=== PATIENT | female | born 1945 | race Caucasian/White ===

== ENCOUNTER 2020-09-02 12:19 | Inpatient (IN) | payer MEDICARE, OTHER, SELFPAY ==
[2020-09-02] VITALS (59 sets, daily range): BP systolic 110–142; BP diastolic 49–71; PULSE 59–74; RESP 12–25; TEMP 36.4–36.5; O2SAT 93–97
--- NOTE | 2020-09-02 12:15 | RT.EKG_ITS ---
APPROVED REPORT Exam: Resting ECG Reason for Exam: chest pain, SOB Patient Location: E HR:70 bpm ECG Measurements Heart Rate 70 AXIS GA 185 P 68 QRSd 86 QRS 34 QT 397 T 55 QTc 430 Conclusion Sinus rhythm...normal P axis, V-rate 60- 99 Low voltage, precordial leads...precordial leads <1.0mV
--- NOTE | 2020-09-02 12:30 | DI.CT_ITS ---
Exam(s) CT CHEST PE CTA EXAM: CT CHEST PE CTA CLINICAL HISTORY: Chest pain, SOB. TECHNIQUE: Imaging Protocol: Axial CT angiography was performed with multi-slice acquisition and mu lti-planar and/or 3D reconstructions. CONTRAST MATERIAL: Intravenous: Omnipaque 350 Contrast volume:structured data in ml COMPARISON: No exams were available for comparison FINDINGS: CT angiography of the chest was performed with intravenous infusion of 63 cc of Omnipaque 350. The lungs are clear. No pleural effusion. Tracheobronchial tree appears intact. No evidence of pulmonary embolic disease. Thoracic aorta is of normal diameter, no thoracic aortic an eurysm or dissection, major branch vessels appear intact. No mediastinal or hilar adenopathy. Images obtained through the upper abdomen show unremarkable appearance of the visualized portions of the liver, spleen, pancreas, adrenals, and kidneys. Note is made of cholelithiasis. IMPRESSION: Negative CT angiogram of the chest. No evidence of pulmonary embolic disease. RADIATION DOSE DELIVERED: 401.12mGy.cm Total DLP 401.12mGy.cm Total DLP DATA REPOSITORY: All CT scans at this facility are submitted to the National Radiology Data Registry (NRDR) Dose Index Registry (DIR) with the [employer] ([employer]). RADIATION OPTIMIZATION: All CT scans at this facility use at least one of these dose optimization te chniques: automated exposure control; mA and/or kV adjustment per patient size (includes targeted exa ms where dose is matched to clinical indication); or iterative reconstruction.
--- NOTE | 2020-09-02 12:39 | ED.GENADUL_ITS ---
Discharge Plan Disposition Condition: Stable Discharge Details Chief Complaint: Chest Pain Admit Date/Time: 09/02/20 17:54 Admit Provider: Rigo Bonner Attending Provider: Rigo Bonner Primary Care Provider: Alexandre Cook ED Provider: Ashley Jacobs Discharge Instructions Activity:: Activity as Tolerated Equipment/Supplies:: No Equipment Needed Diet:: As Tolerated Discharge Orders Discharge Orders: Discharge Order (Routine); Ordered 09/04/20 Ordered By: Dafne Correa Discharge Data Discharge Date/Time-TO BE ENTERED AT DEPARTURE: 09/02/20 18:37 Medical Decision Making <Carmen Abreu - Last Filed: 09/04/20 16:07> 35-year-old female presents the ER with chief complaint of midsternal chest pain x1 to 2 weeks associated with exertional shortness of breath and increased pain with movement and palpation. She reports increased pain with deep breathing. Also associated with some diarrhea which began approximately 1 month ago. She denies any nausea vomiting no abdominal pain. She denies any fever or chills. She reports she has been fully vaccinated for COVID-19 no sick contacts. She states that she has a past medical history of liver cirrhosis, HTN, Hyperlipidemia, depression. Cardiac work up ordered including serial troponins, CT chest Rule out PE. 1424: Spoke with radiologist regarding Chest CT, Negative for PE incidental positive gallstones. FINDINGS: CT angiography of the chest was performed with intravenous infusion of 63 cc of Omnipaque 350. The lungs are clear. No pleural effusion. Tracheobronchial tree appears intact. No evidence of pulmonary embolic disease. Thoracic aorta is of normal diameter, no thoracic aortic aneurysm or dissection, major branch vessels appear intact. No mediastinal or hilar adenopathy. Images obtained through the upper abdomen show unremarkable appearance of the visualized portions of the liver, spleen, pancreas, adrenals, and kidneys. Note is made of cholelithiasis. IMPRESSION: Negative CT angiogram of the chest. No evidence of pulmonary embolic disease. Patient has continued to be chest pain free except for during deep breathing, discussed possible admission for chest pain rule out with patient who verbalizes understanding. At this time care to be handed off to oncoming provider Ashley Jacobs pending repeat CT and probable admission. Discussed patient case in details with her she verbalized understanding. Patient hemodynamically stable at the time of this dictation <Samson Moya MD - Last Filed: 09/02/20 15:55> Patient seen, examined, and discussed with CALVIN Abreu. History concerning for coronary artery disease. EKG was reviewed and interpreted by me: Please see report. No STEMI. Plan to trend troponin. I agree with treatment plan as discussed/documented. <JOSE A Dominique - Last Filed: 09/02/20 18:22> Care transition myself from Maryse Mederos NP. Please see her initial note regarding history, presentation and exam. In brief, patient is a pleasant 75-year-old female presenting today with exertional chest pain shortness of breath that began approximately 2 weeks ago. Symptoms have progressively been worsening to the point that she is now holding onto her and walking with a cane. Patient reports that her father required a bypass at the age of 50, mother of cardiac disease. At the time I assume care, repeat troponin pending. Repeat troponin remains less than 0.05. Reevaluated patient. She remains asymptomatic. I am concerned for unstable angina and feel that admission based on patient's symptoms, progression of disease and family history is appropriate. Will consult with hospitalist. Spoke with Dr. Bonner who agrees to admission for continued chronic cardiac monitoring. HPI <Carmen Abreu - Last Filed: 09/04/20 16:07> General Mode of arrival: ambulatory . Date/Time Provider Initiated Documentation: 09/02/20 12:21 . Limitations to Documentation: no limitations . Information obtained by: patient . HPI Narrative: 35-year-old female presents the ER with chief complaint of midsternal chest pain x1 to 2 weeks associated with exertional shortness of breath and increased pain with movement and palpation. She reports increased pain with deep breathing. Also associated with some diarrhea which began approximately 1 month ago. She denies any nausea vomiting no abdominal pain. She denies any fever or chills. She reports she has been fully vaccinated for COVID-19 no sick contacts. She states that she has a past medical history of liver cirrhosis, HTN, Hyperlipidemia, depression. Related Data Home Medications Medication Instructions Recorded Confirmed cholecalciferol (vitamin D3) 1,500 unit PO DAILY 04/04/14 09/02/20 furosemide 40 mg PO DAILY tab-cap 04/04/14 09/02/20 melatonin 3 mg PO 04/04/14 multivitamin [Daily Multi-Vitamin] 1 ea PO DAILY 04/04/14 09/02/20 B Complex 1 ea PO DAILY 05/09/14 09/02/20 lactulose 10 g PO BID ml 05/09/14 09/02/20 arm brace [Wrist Brace Medium] #2 ea 07/08/14 metoprolol succinate 25 mg PO DAILY tab-cap 02/18/15 09/02/20 bupropion HCl 300 mg PO DAILY 09/02/20 09/02/20 sertraline 100 mg PO DAILY 09/02/20 09/02/20 spironolactone 25 mg PO DAILY 09/02/20 09/02/20 Allergies Allergy/AdvReac Type Severity Reaction Status Date / Time Sulfa (Sulfonamide AdvReac Intermediate NAUSEA,VOMI Unverified 09/02/20 12:50 Antibiotics) TING venlafaxine HCl AdvReac Intermediate BLURRY Unverified 09/02/20 12:50 [From Effexor] VISION,SHAKING General Stated Complaint: Chest Pain LUCIANO: 2 Review of Systems <Carmendaniela Abreu - Last Filed: 09/04/20 16:07> Narrative: Constitutional: Negative for weight loss, alert and oriented, well groomed, normal body habitus, appears comfortable. HEENT: Denies trauma, headaches, blurry vision, nasal discharge, sore throat, trouble swallowing. Chest: Denies palpitations, irregular rhythm, hypertension. Positive midsternal chest pain. Respiratory: Denies hemoptysis. Positive exertional shortness of breath GI: Denies abdominal pain, nausea, vomiting, diarrhea, constipation. : Denies dysuria, hematuria, flank pain, rectal bleeding. Neuro: Denies dizziness, blurry vision, weakness, syncope, headache or facial numbness. Hematologic: Denies easy bruising, intolerance to heat or cold, hair loss. PFSH <Carmen Ignacioton - Last Filed: 09/04/20 16:07> Surgical History section Family History Mother Essential hypertension Father Diabetes Heart disease Brother Heart disease Social History Smoking/Tobacco Use Status: Former Tobacco Use Smoking risk assessment performed?: Yes Alcohol Intake: former Substance use type: does not use Do you feel safe at home: Yes Do you feel safe in your relationship?: Yes Exam <Carmen Abreu [facility] Filed: 09/04/20 16:07> Narrative Exam Narrative: Constitutional: Alert and oriented x3. Appears stated age. Normal body habitus. Head: Normocephalic, no trauma. Eyes: Pupils PERRLA, Red reflex noted, EOM's intact. Eyelids symmetrical without lesions, discharge, or swelling. ENT: Bilateral TM's WNL, External ear normal to inspection, no mastoid TTP, swelling, or erythema, Nasal turbinates WNL, no nasal discharge. Normal dentition, Posterior pharynx WNL, no exudate. Chest: RRR, Normal S1, S2, distal pulses intact. Resp: Lungs clear to auscultation bilaterally, no wheezes, rales, or rhonchi. Abdomen: Soft, nontender to palpation all 4 quadrants. Musculoskeletal: Normal gait, 5/5 strength to all four extremities. No pitting edema to bilateral lower extremity. Skin: No suspicious rashes or lesions. Capillary refill less than 2 sec. Neurologic: Cranial nerves II-XII intact. Alert and oriented x 3. DTR's intact. Hematologic/Lymphatic: No ecchymosis, no lymphadenopathy. Course <Carmen Abreu - [facility] Filed: 09/04/20 16:07> Vital Signs Vital signs: Vital Signs Temperature 36.5 C 09/02/20 12:30 Pulse 74 09/02/20 12:30 Respiratory Rate 25 H 09/02/20 12:30 Blood Pressure 142/62 H 09/02/20 12:30 Pulse Oximetry 96 09/02/20 12:30 Temperature 36.5 C 09/02/20 12:30 Temperature Source Skin 09/02/20 12:30 Pulse 74 09/02/20 12:30 Respiratory Rate 25 H 09/02/20 12:30 Respiratory Effort Non-Labored 09/02/20 12:30 Blood Pressure 142/62 H 09/02/20 12:30 Blood Pressure Position Supine 09/02/20 12:30 Pulse Oximetry 96 09/02/20 12:30 Oxygen Delivery Method Room Air 09/02/20 12:30 Oxygen Flow Rate 0 09/02/20 12:30 Pain Level 5 09/02/20 12:30 Sign Out <Cramen Abreu - Last Filed: 09/04/20 16:07> Sign Out Data: Sign Out Comment: Chest Pain, Pending second Troponin, Possible admission for cardiac rule out Last updated by Carmen Abreu at 09/02/20 16:09
[2020-09-02 13:04] LABS: Abs Immature Grans 0.02 10^3/uL (0.0-0.06); Absolute Basophil Count 0.03 10^3/uL (0.0-0.2); Absolute Eosinophil Count 0.06 10^3/uL (0.0-0.7); Absolute Lymphocyte Count 1.43 10^3/uL (1.2-3.4); Absolute Monocyte Count 0.47 10^3/uL (0.1-0.8); Absolute Neutrophil Count 3.42 10^3/uL (1.2-6.7); Basophils % 0.6; Eosinophils % 1.1; HCT 39.6 % (36.0-46.0); HGB 13.3 g/dL (11.2-15.7); Immature Grans % 0.4; Lymphocytes % 26.3; MCHC 33.6 % (32.0-36.0); MCV 86.3 fL (80-95); MPV 10.3 fL (8.0-11.0); Monocytes % 8.7; Neutrophils % 62.9; Nucleated RBC 0 %; Platelet Count 203 10^3/uL (130-400); RBC 4.59 10^6/uL (3.93-5.22); RDW 11.9 % (11.7-14.6); RDW-SD 37.2 fL; WBC 5.43 10^3/uL (4.4-10.8)
[2020-09-02 13:29] LABS: ALT 27 U/L (14-59); AST 16 U/L (15-37); Albumin 3.8 g/dL (3.4-5.0); Alkaline Phosphatase 87 U/L (46-116); Anion Gap 7.7 mmol/L (3-11); BUN 24 mg/dL (7-18); Bilirubin, Total 0.4 mg/dL (0.2-1.0); CO2 28.3 mmol/L (21.0-32.0); CREATININE 1.3 mg/dL (0.55-1.02); Calcium 9.1 mg/dL (8.5-10.1); Chloride 107 mmol/L (98-107); Estimated GFR 40.04 (mL/min/1.73m2); Glucose 96 mg/dL (74-106); Magnesium 2.1 mg/dL (1.8-2.4); NT-proBNP 169 pg/mL (<300); Potassium 4.2 mmol/L (3.5-5.1); Sodium 143 mmol/L (136-145); Total Protein 6.8 g/dL (6.4-8.2)
[2020-09-02 13:37] LABS: Troponin I < 0.05 ng/mL (<0.06)
[2020-09-02] MEDS: Omnipaque 350 MG/ML 100 ML BTL IJ (14:14)
[2020-09-02] MEDS: Normal Saline - Diluent 50 ML VIAL IV (14:15)
--- NOTE | 2020-09-02 15:45 | RT.EKG_ITS ---
APPROVED REPORT Exam: Resting ECG Reason for Exam: chest pain Patient Location: E HR:61 bpm ECG Measurements Heart Rate 61 AXIS DC 200 P 79 QRSd 83 QRS 43 QT 429 T 38 QTc 432 Conclusion Sinus rhythm...normal P axis, V-rate 60- 99
[2020-09-02 16:33] LABS: Troponin I < 0.05 ng/mL (<0.06)
[2020-09-02 18:08] LABS: Source Nasal/Nares
[2020-09-02] MEDS: Normal Saline Flush 10 ML SYR IVP (19:48)
--- NOTE | 2020-09-02 20:35 | HPE_ITS ---
Date of service: 09/02/20 Time of Service: 20:35 Assessment and Plan Assessment and plan (1) Chest pain: Status: Acute Assessment and plan: Risk factors for CAD; FH (Father had bypass surgery at age 50 and mother of CAD, HTN, HLD. Serial troponin levels. Negative x 2 with 3rd pending. No concerning EKG findings. CTA w/o pulmonary embolism or evidence of pneumonia. Cannot perform stress testing tomorrow; unavailable on Wednesdays. Echocardiogram ordered. Telemetry. 81 mg ASA daily. Lipid panel in the AM Qualifiers: Chest pain type: unspecified Qualified Code(s): R07.9 - Chest pain, unspecified (2) Essential hypertension: Status: Acute Assessment and plan: Cont metoprolol. Also on diuretics; lasix and spironolactone. Monitor. (3) Hyperlipidemia: Status: Acute Assessment and plan: Lipid panel in the AM Currently not on a statin. (4) Cirrhosis: Status: Acute Assessment and plan: Pt states the etiology is not know. Is a previous user of Etoh. States it is not related to a fatty liver/GRIMM or autoimmune. Cont lactulose, spironolactone, BB. Monitor daily wt. History of Present Illness History of Present Illness Chief Complaint: Chest Pain Narrative: This is a 75 yo female with a PMH of cirrhosis, HLD, HTN, depression. She presented with midsternal chest pain for appx 1-2 weeks and worsening. She has recently started holding on to her or using her umbrella as a cane when walking. She notes the presence of the pain with movement, deep breaths and palpation of the chest. She has developed shortness of air with exertion. No radiation of the pain. + diarrhea w/o N/V/abd pain. No F/C. She is fully vacinnated for Covid- 19. In the ED troponin neg x 2. CTA chest negative for pulmonary embolism or other acute findings. WBC count normal. Lytes normal. Creatinine 1.3. Liver enzymes and bilirubin normal. Review of Systems All systems reviewed & are unremarkable except as noted in HPI and below PFSH Surgical History section Family History Mother Essential hypertension Father Diabetes Heart disease Brother Heart disease Social History Smoking/Tobacco Use Status: Former Tobacco Use Smoking risk assessment performed?: Yes Alcohol Intake: former Substance use type: does not use Do you feel safe at home: Yes Do you feel safe in your relationship?: Yes Meds Allergies and Home Medications Allergies Allergy/AdvReac Type Severity Reaction Status Date / Time Sulfa (Sulfonamide AdvReac Intermediate NAUSEA,VOMI Unverified 09/02/20 12:50 Antibiotics) TING venlafaxine HCl AdvReac Intermediate BLURRY Unverified 09/02/20 12:50 [From Effexor] VISION,SHAKING Home Medications Medication Instructions Recorded Confirmed Type cholecalciferol (vitamin D3) 1,500 unit PO DAILY 04/04/14 09/02/20 History furosemide 40 mg PO DAILY tab-cap 04/04/14 09/02/20 History melatonin 3 mg PO 04/04/14 History multivitamin [Multi-Vitamin Daily] 1 ea PO DAILY 04/04/14 09/02/20 History lactulose 10 g PO BID ml 05/09/14 09/02/20 History vitamin B complex [B Complex] 1 ea PO DAILY 05/09/14 09/02/20 History arm brace [Wrist Brace] #2 ea 07/08/14 History metoprolol succinate 25 mg PO DAILY tab-cap 02/18/15 09/02/20 History bupropion HCl 300 mg PO DAILY 09/02/20 09/02/20 History sertraline 100 mg PO DAILY 09/02/20 09/02/20 History spironolactone 25 mg PO DAILY 09/02/20 09/02/20 History Exam Const General: cooperative and no acute distress Nutritional Appearance: average body habitus Orientation: alert and oriented x3 Neck Neck: full ROM and no JVD Chest Chest: no tenderness Resp Effort & Inspection: normal respiratory effort Auscultation: clear to auscultation bilaterally Cardio Rate: regular rate Rhythm: regular rhythm Heart Sounds: S1 normal and S2 normal GI Palpation: soft and nontender Skin General skin exam: no rashes or lesions noted Extrem General: no pedal edema and no calf tenderness Psych Appearance: grossly normal Mental Status: mental status grossly normal Speech and Movement: speech and movement normal Affect: normal affect Results Labs Result diagrams: 09/02/20 12:52 09/02/20 12:52 Labs: Laboratory Results - last 24 hr 09/02/20 09/02/20 09/02/20 12:38 12:52 12:52 WBC 5.43 RBC 4.59 Hgb 13.3 Hct 39.6 MCV 86.3 MCH 29.0 MCHC 33.6 RDW 11.9 Plt Count 203 MPV 10.3 Immature Gran % 0.4 Neutrophils % 62.9 Lymphocytes % 26.3 Monocytes % 8.7 Eosinophils % 1.1 Basophils % 0.6 Nucleated RBC % 0 Absolute Neutrophils 3.42 Absolute Lymphocytes 1.43 Absolute Monocytes 0.47 Absolute Eosinophils 0.06 Absolute Basophils 0.03 Sodium 143 Potassium 4.2 Chloride 107 Carbon Dioxide 28.3 Anion Gap 7.7 BUN 24 H Creatinine 1.3 H Estimated GFR/1.73 m2 40.04 Glucose 96 Calcium 9.1 Magnesium 2.1 Total Bilirubin 0.4 AST 16 ALT 27 Alkaline Phosphatase 87 Troponin I < 0.05 NT-Pro-B Natriuret Pep Cancelled 169 Total Protein 6.8 Albumin 3.8 COVID-19 Source 09/02/20 09/02/20 15:58 18:00 WBC RBC Hgb Hct MCV MCH MCHC RDW Plt Count MPV Immature Gran % Neutrophils % Lymphocytes % Monocytes % Eosinophils % Basophils % Nucleated RBC % Absolute Neutrophils Absolute Lymphocytes Absolute Monocytes Absolute Eosinophils Absolute Basophils Sodium Potassium Chloride Carbon Dioxide Anion Gap BUN Creatinine Estimated GFR/1.73 m2 Glucose Calcium Magnesium Total Bilirubin AST ALT Alkaline Phosphatase Troponin I < 0.05 NT-Pro-B Natriuret Pep Total Protein Albumin COVID-19 Source Nasal/nares Last Vital Signs Temp 36.5 C 09/02/20 18:44 Pulse 64 09/02/20 19:42 Resp 20 09/02/20 18:44 BP 136/63 09/02/20 18:44 Pulse Ox 95 09/02/20 18:44 COVID-19 Screening Have you, or household traveled for leisure in last 14 days?: No Had IN PERSON contact w/suspected or confirmed C-19 person: No
[2020-09-02 20:36] LABS: COVID-19 PCR Negative (Negative)
[2020-09-02 22:00] LABS: Troponin I < 0.05 ng/mL (<0.06)
[2020-09-03] VITALS (9 sets, daily range): BP systolic 110–148; BP diastolic 58–72; PULSE 56–71; RESP 16–19; TEMP 36.1–37; O2SAT 94–97
--- NOTE | 2020-09-03 | DI.US_ITS ---
Exam(s) US ABDOMEN LIMITED EXAM: US ABDOMEN LIMITED CLINICAL HISTORY: evaluate gall bladder TECHNIQUE: Ultrasound abdomen performed using standard protocol. COMPARISON: CT scan 09/02/2020 was reviewed. FINDINGS: There is no ascites evident. LIVER: There are no hepatic lesions evident nor dilatation of intrahepatic ducts. GALLBLADDER/BILIARY: Per mobile gallstones noted. No gallbladder wall edema nor pericholecystic flui d. The common hepatic duct isnot dilated, measuring 3-4mm at the level of brisa hepatis. PANCREAS: There is no evidence of pancreatic mass nor dilatation of the pancreatic duct. RIGHT KIDNEY:No evidence of solid mass, calculus, nor hydronephrosis. No cortical cysts evident. ABDOMINAL AORTA AND IVC: Visualized portions exhibit normal caliber. IMPRESSION: 1. Cholelithiasis. There are gallstones noted. Gallbladder wall does not appear edematous. No dil atation of the biliary tree. 2. No other significant ultrasound findings in the right upper quadrant. 3. There is no ascites. DATA REPOSITORY:
[2020-09-03 07:51] LABS: Anion Gap 7.4 mmol/L (3-11); BUN 22 mg/dL (7-18); CO2 29.6 mmol/L (21.0-32.0); CREATININE 1.2 mg/dL (0.55-1.02); Calcium 8.8 mg/dL (8.5-10.1); Calculated LDL 144 mg/dL (<100); Chloride 107 mmol/L (98-107); Cholesterol 225 mg/dL (<200); Estimated GFR 43.91 (mL/min/1.73m2); Glucose 93 mg/dL (74-106); HDL Cholesterol 61 mg/dL (40-60); Potassium 3.8 mmol/L (3.5-5.1); Sodium 144 mmol/L (136-145); Triglyceride 103 mg/dL (<150)
[2020-09-03] MEDS: Lactulose 20 GM/30 ML CUP 10 GM PO (09:39)
[2020-09-03] MEDS: Aspirin 81 MG CHEW PO (09:40)
[2020-09-03] MEDS: Cholecalciferol (Vitamin D3) 1,000 UNIT TAB 1500 UNITS PO (09:40)
[2020-09-03] MEDS: buPROPion-XL 150 MG TABCR 300 MG PO (09:40)
[2020-09-03] MEDS: Sertraline 50 MG TAB 100 MG PO (09:40)
[2020-09-03] MEDS: Vitamins B Comp w/C TAB 1 TAB PO (09:40)
[2020-09-03] MEDS: Furosemide 20 MG TAB 40 MG PO (09:40)
[2020-09-03] MEDS: Multivitamin TAB 1 TAB PO (09:40)
[2020-09-03] MEDS: Metoprolol CR 25 MG TABCR PO (09:40)
[2020-09-03] MEDS: Normal Saline Flush 10 ML SYR IVP (09:40)
[2020-09-03] MEDS: Spironolactone 25 MG TAB PO (09:40)
--- NOTE | 2020-09-03 15:58 | CHAPLAIN ---
Zuleika was up in her chair watching tv when I visited. She was pleasant and engaged in conversation. She said she is waiting to hear if she'll be discharged today or not. She wasn't interested in further conversation.
--- NOTE | 2020-09-03 16:19 | W.PM.PROGNOT ---
Date of Service Date of service: 09/03/20 Time of Service: 16:19 Assessment and Plan Assessment and plan (1) Chest pain: Status: Acute Assessment and plan: Risk factors for CAD; FH (Father had bypass surgery at age 50 and mother of CAD, HTN, HLD. Serial troponin levels negative No concerning EKG findings. CTA w/o pulmonary embolism or evidence of pneumonia. stress testing tomorrow, will be npo after midnight, hold am lopressor Echocardiogram EF 60% with no WMA. continue Telemetry. 81 mg ASA daily. Lipid panel Qualifiers: Chest pain type: unspecified Qualified Code(s): R07.9 - Chest pain, unspecified (2) Essential hypertension: Status: Acute Assessment and plan: Cont metoprolol. Also on diuretics; lasix and spironolactone. Monitor. (3) Hyperlipidemia: Status: Acute Assessment and plan: Lipid panel Currently not on a statin. (4) Cirrhosis: Status: Acute Assessment and plan: Pt states the etiology is not know. Is a previous user of Etoh. States it is not related to a fatty liver/GRIMM or autoimmune. Cont lactulose, spironolactone, BB. Monitor daily wt. (5) Discharge planning issues: Status: Acute Assessment and plan: plan on discharge tomorrow if stress test negative discussed with Dr Garland Subjective Subjective Patient reports: no new complaints, feels better, voiding w/o difficulty and afebrile Exam Const General: cooperative and no acute distress Nutritional Appearance: average body habitus Orientation: alert and oriented x3 Neck Neck: full ROM and no JVD Chest Chest: no tenderness Resp Effort & Inspection: normal respiratory effort Auscultation: clear to auscultation bilaterally Cardio Rate: regular rate Rhythm: regular rhythm Heart Sounds: S1 normal and S2 normal GI Palpation: soft and nontender Skin General skin exam: no rashes or lesions noted Extrem General: no pedal edema and no calf tenderness Psych Appearance: grossly normal Mental Status: mental status grossly normal Speech and Movement: speech and movement normal Affect: normal affect Objective Last Vital Signs Temp 36.4 C L 09/03/20 15:37 Pulse 61 09/03/20 15:37 Resp 19 09/03/20 15:37 BP 115/67 09/03/20 15:37 Pulse Ox 97 09/03/20 15:37 Laboratory Results - last 24 hr 09/02/20 09/02/20 09/02/20 15:58 18:00 20:01 Sodium Potassium Chloride Carbon Dioxide Anion Gap BUN Creatinine Estimated GFR/1.73 m2 Glucose Calcium Troponin I < 0.05 Cancelled Triglycerides Total Cholesterol LDL Cholesterol, Calc HDL Cholesterol COVID-19 Source Nasal/nares SARS-CoV-2 (PCR) Negative 09/02/20 09/03/20 21:30 06:35 Sodium 144 Potassium 3.8 Chloride 107 Carbon Dioxide 29.6 Anion Gap 7.4 BUN 22 H Creatinine 1.2 H Estimated GFR/1.73 m2 43.91 Glucose 93 Calcium 8.8 Troponin I < 0.05 Triglycerides 103 Total Cholesterol 225 H LDL Cholesterol, Calc 144 H HDL Cholesterol 61 COVID-19 Source SARS-CoV-2 (PCR)
[2020-09-04 03:29] VITALS: BP 153/66; PULSE 61; RESP 16; TEMP 36.2; O2SAT 96
[2020-09-04 07:54] VITALS: PULSE 61
[2020-09-04 08:06] VITALS: BP 138/67; PULSE 61; RESP 18; TEMP 37.1; O2SAT 97
--- NOTE | 2020-09-04 09:15 | DI.NM_ITS ---
APPROVED REPORT Exam: Exercise Treadmill converted to Pharmacologic Patient Location: In-Patient Room/Bed: [address] [facility] Nurse: Anna Taylor RN Ordering Provider:WALLACE JHAVERI, Contact Number: [phone] BMI: 26.82 Baseline Rhythm: Sinus Rhythm Indications: Chest pain Medical History Medical History: Hypertension, hyperlipidemia, depression Cardiac Medications: spironolactone, furosemide, sertraline, bupropion, metoprolol succinate Allergies: Sulfa, venlafaxine hcl Cardiac Risk Factors: Hypertension, hyperlipidemia, smoker (former), family hx Previous Cardiac Procedures: None Pretest Chest Pain Characteristics: Midsternal CP /, pressure/achey Exercise History: Sedentary Physical Disabilities: None Lung Sounds: Clear to auscultation Heart Sounds: Regular Stress Test Details Test: Exercise stress converted to pharmacologic stress. Reason for pharmacologic stress test: Inability to safely monitor EKG w/ exercise. Nuclear Acquisition: Rest Tc-99m/Stress Tc-99m 1 day Rest Isotope: Tc-99m Sestamibi. Dose: 12 Date: 09/04/2020 Injection Time: 0920 Stress Isotope: Tc-99m Sestamibi. Dose: 36 Date: 09/04/2020 Injection Time: 1125 HR Resting HR Supine: 62 bpm Max Heart Rate (APMHR): 146.492102 bpm Resting HR Standin bpm Target HR (85% APMHR): 124.100861 bpm Max HR Achieved: 98 bpm % of APMHR: 67.12 Recovery HR: 75 bpm HR response to stress: Normal HR response to stress Comment: Metoprolol succinate held for 24 hrs BP Resting BP Supine: 150/88 mmHg Resting BP Standin/70 mmHg Max BP: 150/88 mmHg Recovery BP: 136/72 mmHg BP response to stress: Normal blood pressure response to stress. ECG Resting ECG: Sinus Rhythm Ectopy: None Stress ECG: Sinus Rhythm ST Change: No significant ST segment changes noted Arrhythmia: None Recovery ECG: Sinus Rhythm Recovery ST Change: No significant ST segment changes noted Recovery Arrhythmia: None Clinical Stress Symptoms: Chest pain, Dyspnea Exercise duration: 11 min02 sec Rate Pressure Product: 09130 Stress ECG Conclusion 1. This was an exercise stress test converted to a pharmacological exam. 2. The EKG portion of this exam is nondiagnostic. MPI Conclusion Ejection fraction was greater than 70% with stress. There were no wall motion abnormalities. There is a large degree of uptake outside of the heart affecting the interpretation of this study. There is no clear evidence of ischemia on the imaging portion of the exam. This likley represents a normal SPECT stress test. Radiologist Interpretation Radiologist agrees with Business Info Consultant's Interpretation. Radiologist Interpretation by: Blessing Linder MD Interpretation Date/Time: 09/05/2020 15:28:35
--- NOTE | 2020-09-04 09:53 | INITIAL_ITS ---
- If Service Date Differs Date of service: 09/04/20 Time of Service: 14:01 Care Management Initial Assess REASON FOR HOSPITALIZATION:: Unstable angina PAST MEDICAL HISTORY/PAST SURGICAL HISTORY:: section PREVIOUS FUNCTIONAL STATUS/SOCIAL/FAMILY SUPPORTS:: Zuleika resides in [place] with her , Cyrus, and their dog-Fern. She is independent with all ADLs in the community. CURRENT FUNCTIONAL STATUS:: Zuleika was sitting up in her chair, watching television. She is looking forward to returning home and shares no other concerns at this time, CM continues to follow. ADVANCE DIRECTIVES:: None on file at [facility]. Has patient been provided with info about the portal/API?: Yes Did the patient sign up for the portal?: No CODE STATUS:: Full Code INSURANCE COVERAGE / FINANCIAL ISSUES:: Medicare. [employer] CURRENT HOME/COMMUNITY SERVICES/EQUIPMENT:: No current services or equipment. PRIMARY CARE PHYSICIAN:: Alexandre Cook POTENTIAL DISCHARGE NEEDS:: Follow up appointments. PATIENT/FAMILY EDUCATION NEEDS:: Review discharge instructions, discuss Ask Me Three. ANTICIPATED BARRIERS TO DISCHARGE:: None identified. TRANSPORTATION:: Via private vehicle with her . PLAN:: Zuleika will return home when ready per MD. No additional services anticipated at this time. She will follow up with her PCP and plan of care as prescribed. She will transport via private vehicle with her .
[2020-09-04] MEDS: Regadenoson 0.4 MG/5 ML SYR IVP (11:51)
[2020-09-04] MEDS: Cholecalciferol (Vitamin D3) 1,000 UNIT TAB 1500 UNITS PO (13:58)
[2020-09-04] MEDS: Vitamins B Comp w/C TAB 1 TAB PO (13:58)
[2020-09-04] MEDS: buPROPion-XL 150 MG TABCR 300 MG PO (13:58)
[2020-09-04] MEDS: Spironolactone 25 MG TAB PO (13:58)
[2020-09-04] MEDS: Furosemide 20 MG TAB 40 MG PO (13:58)
[2020-09-04] MEDS: Multivitamin TAB 1 TAB PO (13:58)
[2020-09-04] MEDS: Sertraline 50 MG TAB 100 MG PO (13:58)
[2020-09-04 14:55] VITALS: BP 114/67; PULSE 72; RESP 18; TEMP 37.1; O2SAT 97
--- NOTE | 2020-09-04 15:53 | W.PM.DS.N ---
Date of service: 09/04/20 Time of Service: 15:53 DS: Diagnosis Discharge Diagnosis (1) Chest pain: Status: Acute (2) Essential hypertension: Status: Acute (3) Hyperlipidemia: Status: Acute (4) Cirrhosis: Status: Acute Discharge Plan Disposition Patient Disposition: HOME Condition: Stable Discharge Details Reason For Visit: UNSTABLE ANGINA Admit Date/Time: 09/02/20 17:54 Admit Provider: Rigo Bonner Attending Provider: Rigo Bonner Primary Care Provider: Alexandre Cook [facility] Hospital Course: This is a 75 year old female with a past medical history of cirrhosis, HLD, HTN, depression.? She presented with midsternal chest pain for appx 1-2 weeks and worsening. She has recently started holding on to her or using her umbrella as a cane when walking.? She notes the presence of the pain with movement, deep breaths and palpation of the chest.? She has developed shortness of air with exertion.? No radiation of the pain.? She is fully vaccinated for Covid-19.? In the ED troponin neg x 2.? CTA chest negative for pulmonary embolism or other acute findings.? WBC count normal.? Lytes normal.? Creatinine 1.3.? Liver enzymes and bilirubin normal.? she remained medically and hemodynamically stable and asymptomatic. she underwent a stress test which was unremarkable. she will be discharged to home to follow up outpatient with pcp for further outpatient testing of dyspnea with exertion with elevated PASP at 36 mmHg echo: LV chamber size, wall thickness, global and segmental systolic function are within normal limits EF 60%. Right ventricular chamber size wall thickness and systolic function are within normal limits. PASP 36 mmHg discharge discussed with Dr Garland Jasper Meds and New Rx's Prescriptions: Continued multivitamin [Daily Multi-Vitamin] 1 EACH tablet 1 ea PO DAILY RF: 0 melatonin 3 MG tablet 3 mg PO RF: 0 furosemide 20 MG tablet 40 mg PO DAILY RF: 0 cholecalciferol (vitamin D3) 1,000 UNIT tablet 1,500 unit PO DAILY RF: 0 B Complex 1 EACH tablet extended release 1 ea PO DAILY RF: 0 lactulose 10 GM/15 ML solution 10 g PO BID RF: 0 (DME) arm brace [Wrist Brace Medium] 1 EACH misc 1 ea Miscellaneous HS Qty: 2 RF: 0 metoprolol succinate 25 MG tablet extended release 24 hr 25 mg PO DAILY RF: 0 sertraline 100 mg Tablet 100 mg PO DAILY RF: 0 spironolactone 25 mg Tablet 25 mg PO DAILY RF: 0 bupropion HCl 300 mg Tablet Extended Release 24 Hr 300 mg PO DAILY RF: 0 Discharge Instructions Instructions: Dyspnea (DC) Additional Instructions: your echo showed elevated pulmonary artery pressure at 36. This will require further outpatient evaluation that can be arranged through your primary care provider. Stand Alone Forms: Nursing Discharge Form Referrals: [facility] [place] [Outside] [place]UL[place]OLOG[place],[facility] [place] [facility] [place] - Alexandre Cook [Primary Care Provider] - (Please call office for follow up appointment.) Activity:: Activity as Tolerated Equipment/Supplies:: No Equipment Needed Diet:: As Tolerated Discharge Orders Discharge Orders: Discharge Order (Routine); Ordered 09/04/20 Ordered By: Dafne Correa Other Ambulatory Orders: PFT ([facility]) (Outpt) (ONCE) Location: None Selected Ordered By: Dafne Correa DS: Summary Time Spent with Patient providing and/or coordinating discharge services: Greater than 30 minutes Status at Discharge Functional status at discharge: independent ambulation Overall status at discharge: patient is not back to baseline Mental Status: mental status grossly normal Speech and Movement: speech and movement normal Mood: congruent mood Affect: normal affect Exam Const General: cooperative and no acute distress Nutritional Appearance: average body habitus Orientation: alert and oriented x3 Neck Neck: full ROM and no JVD Chest Chest: no tenderness Resp Effort & Inspection: normal respiratory effort Auscultation: clear to auscultation bilaterally Cardio Rate: regular rate Rhythm: regular rhythm Heart Sounds: S1 normal and S2 normal GI Palpation: soft and nontender Skin General skin exam: no rashes or lesions noted Extrem General: no pedal edema and no calf tenderness Psych Appearance: grossly normal Mental Status: mental status grossly normal Speech and Movement: speech and movement normal Mood: congruent mood Affect: normal affect DS: Data Vitals/I&O Vitals and I&O: Vital Signs Temperature 37.1 C 09/04/20 14:55 Temperature Source Temporal Artery Scan 09/04/20 14:55 Pulse 72 09/04/20 14:55 Pulse Rhythm Regular 09/04/20 08:15 Pulse 66 09/02/20 18:10 Respiratory Rate 18 09/04/20 14:55 Respiratory Effort Non-Labored 09/04/20 08:15 Respiratory Depth Normal 09/04/20 08:15 Respiratory Pattern Normal 09/04/20 08:15 Blood Pressure 114/67 09/04/20 14:55 Blood Pressure Mean 78 09/02/20 18:01 Blood Pressure Position Supine 09/02/20 12:30 Pulse Oximetry 97 09/04/20 14:55 Oxygen Delivery Method Room Air 09/04/20 14:55 Oxygen Flow Rate 0 09/04/20 14:55 Pain Level 2 09/04/20 14:55 Intake & Output 09/03/20 09/04/20 09/04/20 23:59 11:59 23:59 Intake Total 480 / 720 Balance 480 / 720 Intake: Oral 480 / 720 Other: Urine Color Pale Urine Appearance Clear Clear Comment pt up independently to void per pt report Voiding Methods Toilet PFSH Surgical History section Family History Mother Essential hypertension Father Diabetes Heart disease Brother Heart disease Social History Smoking/Tobacco Use Status: Former Tobacco Use Smoking risk assessment performed?: Yes Alcohol Intake: former Substance use type: does not use Do you feel safe at home: Yes Do you feel safe in your relationship?: Yes
== END 2020-09-04 17:01 | disposition home or self-care (01) | DRG 313 ==
LOC: ER 18:13 → MS 18:39
PROVIDERS: Registered Nurse Emergency; Admitting Provider Family Medicine; Emergency Provider Physician Assistant; PCP Neuromusculoskeletal Medicine & OMM; Visit Provider Family Medicine
DX: R07.9 Chest pain, unspecified (principal); I10 Essential (primary) hypertension; E78.5 Hyperlipidemia, unspecified; Z20.822 Contact with and (suspected) exposure to COVID-19; K74.60 Unspecified cirrhosis of liver; F32.9 Major depressive disorder, single episode, unspecified; Z82.49 Family history of ischemic heart disease and other diseases of the circulatory system
CPT/HCPCS: 36415; 71275; 78452; 80048; 80053; 80061; 87635; 93005; 99285; 76705; 83735; 83880; 84484; 85025; 93010; 93017; 93306; 99223; 99233; 99239; J2785; J3490

== ENCOUNTER 2020-09-09 11:07 | Outpatient (CLI) | payer MEDICARE, OTHER, SELFPAY ==
--- OUTSIDE RECORDS SUMMARY | 2020-09-09 11:10 | XMS_ITS ---
:1945 Author Care Team Providers Name Role Phone BHARGAV BLAIR DO Primary Care Provider Unavailable JIM JOSEPH MD Orthopedic Surgeon Unavailable ASHLEY RICO MD General Surgeon Unavailable Allergies Code Code System Name Reaction Severity Status Onset Effexor Hallucinations Moderate Active ? Sulfa Dizziness Moderate Active ? (Sulfonamide Antibiotics) Medications Name Status Start Date Stop Date ? ? albuterol sulfate 2.5 mg/3 mL (0.083 %) solution for nebuliz ation Completed 05/21/2011 01/04/2012 1 Nebulized Soln: qid and prn Aldactone 50 mg tablet Completed 05/17/2012 3 1 (one) Tablet: daily Ambien 10 mg tablet Completed 01/04/2012 10/18/2012 1 (one) Tablet: At bedtime as needed amitriptyline 10 mg tablet Completed 01/25/201301/25 1 Tablet: qhs - at bedtime as needed insomnia amoxicillin 875 mg tablet Completed 05/23/20142014 1 (one) Tablet: two times daily aspirin 325 mg tablet,delayed release Completed 09/29/2012 12/21/2012 1 (one) Tab DR: daily B Complex 1 tablet Active ? Not available Take 1 tablet every day by oral route. bupropion HCl XL 300 mg 24 hr tablet, extended release Active ? Not available TAKE ONE TABLET BY MOUTH EVERY DAY calcipotriene 0.005 % scalp Completed ? 07/26 solution Celebrex 200 mg capsule Completed 08/26/2008 08/27/19 09 1 (one) Capsule: Daily cholecalciferol (vit D3) 1,000 unit-vitamin K2 (MK4) 100 mcg tab let Completed ? 08/22/2018 Take 1 tablet by oral route in the morning. ciprofloxacin 250 mg tablet Completed 06/23/2012 03/0 11/2012 1 Tablet: every 12 hours for urinary tract infec citalopram 10 mg tablet Completed 03/13/2008 03/13/20 08 1 (one) Tablet: Daily clindamycin HCl 300 mg capsule Completed 06/07/2014 0 06/17/2014 1 (one) Capsule: every eight hours Debrox 6.5 % ear drops Completed 11/14/2006 Delzicol 400 mg capsule (DR tablets inside) Completed 09/2312/21/2012 2 (two) Capsule DR: tid - three times a day diphenoxylate-atropine 2.5 mg-0.025 mg/5 mL oral liquid Complete d 01/13/2016 02/10/2016 2.5 Milliliter: q 6 hours prn diarrhea docusate sodium 100 mg capsule Completed 09/27/2013 1 1 Capsule: bid - twice daily doxycycline hyclate 20 mg tablet Active ? Not available TAKE ONE TABLET BY MOUTH TWICE A DAY Effexor XR 37.5 mg capsule,extended release Completed 09/2410/17/2006 1 (one) Cap SR 24HR: QD for 14 days enalapril maleate 10 mg tablet Completed 06/24/2009 0 06/24/2009 1 (one) Tablet: daily Estrace 0.01% (0.1 mg/gram) vaginal cream Completed 201304/30/2014 1 (one) Application(s): 2 - 3 x wk fish oil-omega 3-vit E-flax seed oil 187.5 mg-5 mg-250 mg capsul e Active ? Not available Take 1 capsule every day by oral route. Flagyl 250 mg tablet Completed 01/09/2008 01/23/2008 1 (one) Tablet: three times daily Flonase 50 mcg/actuation nasal spray,suspension Completed 08/16/2012 12/21/2012 2 (two) Opp(s): See comments Flovent HFA 110 mcg/actuation aerosol inhaler Completed 06/22/2011 2 (two) Puff(s): bid - twice daily Fluzone High-Dose Quad 2020-21 (PF) 240 mcg/0.7 mL IM syringe Ac tive ? Not available PHARMACIST ADMINISTERED IMMUNIZATION ADMINISTERED AT TIME OF DI SPENSING furosemide 20 mg tablet Active ? Not avai lable TAKE 1 TABLET BY MOUTH EVERY DAY FOR 7 DAYS OR UNTIL SWELLING S UBSIDES Guaifenesin AC 10 mg-100 mg/5 mL oral liquid Completed 02/18/2017 1 (one) teaspoon: q 6 hours prn cough hydrochlorothiazide 25 mg tablet Completed 08/31/2012 08/31/2012 1 (one) Tablet: daily hydrocodone 5 mg-acetaminophen 325 mg tablet Completed 06/26/2013 1 Tablet: two times daily, as needed ibuprofen 800 mg tablet Completed 06/18/2008 06/18/19 09 1 (one) Tablet: QID/PRN Inderal LA 60 mg capsule,extended release Completed 201212/21/2012 1 Capsule ER 24HR: bid - twice daily lactulose 10 gram/15 mL oral solution Active ? Not available TAKE 20GMS ( 2 TABLESPOONS ) BY MOUTH THREE TIMES A DAY Levaquin 750 mg tablet Completed 11/18/2005 6 1 (one) Tablet: Daily x 3 days loperamide 2 mg capsule Completed 11/25/2015 02/10/20 16 1 (one) Capsule: in the am as needed lorazepam 0.5 mg tablet Completed 09/29/2012 10/01/19 13 1 (one) Tablet: As directed Macrobid 100 mg capsule Completed 06/26/2009 07/04/19 10 1 (one) Capsule: Twice daily meclizine 12.5 mg tablet Completed 12/21/2012 013 1 Tablet: three times daily. as needed melatonin ER 3 mg tablet,extended release Completed 201307/07/2015 1 Tablet ER: at night metoprolol succinate ER 25 mg tablet,extended release 24 hr Acti ve ? Not available TAKE ONE TABLET BY MOUTH EVERY DAY metoprolol tartrate 50 mg tablet Completed 10/17/2006 10/17/2006 1 (one) Tablet: Twice daily Milk Of Magnesia Concentrated 2,400 mg/10 mL oral suspension Completed 12/21/2012 01/25/2013 30 Milliliter(s): daily as needed mirtazapine 15 mg tablet Completed 07/25/2009 010 1 (one) Tablet: daily in the evening Multi Vitamin Active ? Not available Mysoline 250 mg tablet Completed 11/13/2010 1 04/26 Tablet: twice daily nebulizer accessories misc Completed 05/21/201101/03 1 Device: as directed Nexium 40 mg capsule,delayed release Completed 03/13/2008 03/13/2008 1 (one) Cap DR: Daily nystatin 100,000 unit/mL oral suspension Completed 012 07/06/2011 1 Teaspoon(s): qid - four times a day omeprazole 20 mg capsule,delayed release Completed 014 04/16/[address]: take 04/26 hoiur before first am meal ondansetron 4 mg disintegrating tablet Active ? Not available prn Pepcid 20 mg tablet Completed 07/02/2004 11/08/2005 1 (one) Tablet: BID potassium chloride ER 10 mEq capsule,extended release Completed 01/25/2013 09/27/2013 1 Capsule ER: daily prednisone 10 mg tablet Completed 06/15/2016 07/02/19 17 2 (two) Tablet: daily Premarin 0.625 mg/gram vaginal cream Completed 10/01/2013 06/07/2014 1 (one) Cream Cream: See comments propranolol 10 mg tablet Completed 2010 011 2 (two) tablet(s): three times daily propranolol 20 mg tablet Completed 09/27/2013 015 1 Tablet: bid - twice daily Protonix 40 mg tablet,delayed release Completed 08/26/2008 08/26/2008 1 (one) Tab DR: Daily ranitidine 150 mg capsule Completed ? 2018 Take 1 capsule twice a day by oral route for 30 days. ranitidine 150 mg tablet Active ? Not jordan ilable prn ropinirole 0.5 mg tablet Completed 04/16/2014 015 1 (one) Tablet Tablet: see comments salmon oil 1,000 mg-omega-3 fatty acids 210 mg capsule Active ? Not available Take 1 capsule every day by oral route. sertraline 100 mg tablet Active ? Not jordan ilable TAKE ONE TABLET BY MOUTH EVERY DAY sertraline 25 mg tablet Completed ? 12/15/19 sertraline 50 mg tablet Completed ? 12/15/19 19 simvastatin 40 mg tablet Completed 06/22/2012 013 1 (one) Tablet: daily spironolactone 25 mg tablet Active ? Not available TAKE ONE TABLET BY MOUTH EVERY DAY Topamax 25 mg tablet Completed 03/13/2008 03/13/2008 1 (one) Tablet: Daily tramadol 50 mg tablet Completed 09/20/2014 09/24/2014 1 (one) Tablet: every six hours, as needed trazodone 50 mg tablet Completed 02/07/2014 5 1 (one) Tablet Tablet: q - at bedtime Viberzi 100 mg tablet Completed 12/23/2015 01/13/2016 1 (one) Tablet: two times daily Vitamin B-12 100 mcg tablet Completed 07/12/2012 1 Tablet: daily Vitamin D Active ? Not available 1 daily Vitamin D2 1,250 mcg (50,000 unit) capsule Completed 12/1803/18/2013 1 Capsule: weekly Vitamin D3 Completed ? 03/23/2019 Xanax 0.5 mg tablet Completed 09/09/2011 09/09/2011 1 tab Tablet: two times daily Zetia 10 mg tablet Completed 09/09/2011 01/04/2012 1 Tablet: daily Zithromax Z-Javi 250 mg tablet Completed 06/15/2016 as directed Tablet: daily Zocor 10 mg tablet Completed 10/03/2006 10/03/2006 1 (one) Tablet: [facility] / Notes: reviewed with pt-02/09/20 19 Problems Name Status Onset Date Source ? Malignant Melanoma of Skin of Upper Active 03/20/2019 ? Limb Edema Active 07/13/2019 ? Mixed Hyperlipidemia Active ? History Hyperlipidemia Active ? History Hyperkalemia Active ? History Depressive Disorder Active ? History Insomnia Active ? History Hypersomnia Unknown ? History Obstructive Sleep Apnea Syndrome Active ? ? Sleep Related Bruxism Active ? History Restless Legs Active ? History Bilateral Tinnitus Active ? History Hypertensive Disorder Active ? History Tracheobronchitis Unknown ? History Gastro-esophageal Reflux Disease with Active ? History Esophagitis Gastroesophageal Reflux Disease Active ? History Irritable Bowel Syndrome with Diarrhea Active ? History Cirrhosis of Liver Active ? History Atrophic Vaginitis Active ? History Flexural Psoriasis Active ? History Disorder of Nail Active ? History Alopecia Active ? History Hip Pain Active ? History Cervical Radiculopathy Active ? History Backache Unknown ? History Dupuytren's Disease of Palm Active ? Hist ory Dizziness and Giddiness Unknown ? History Sleep Disorder Active ? History Lack of Energy Unknown ? History Finding of Appearance of Skin Unknown ? Hi story Snoring Active ? History Chest Pain Unknown ? History Nausea Unknown ? History Abdominal Bloating Active ? History Complete Fecal Incontinence Active ? Hist ory Diarrhea Active ? History Generalized Abdominal Pain Unknown ? Histo ry Active Immunization Unknown ? History Adult Health Examination Unknown ? History Screening Mammography Unknown ? 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 History Procedure by Method Unknown ? History SNOMED CT Concept Unknown ? History Specialized Medical Examination Unknown ? History Left Side Sciatica Active ? History Tendon Finding Active ? History Pain of Right Shoulder Joint Active ? His tory Pain in Right Hand Unknown ? History Procedures Date Name Performed by ? 01/19/2018 Colonoscopy Information not avai lable Notes: diverticular disease; 4; 01/01/2008; 12/14/2004 01/19/2018 Egd Information not avai lable Notes: hiatal hernia; 10/13/2015 04/25/1983 Tubal Ligation Information not avai lable Notes: Tubal Ligation ? General Surgery Information not avai lable Notes: pt reports liver biopsy 2011 ? General Surgery Information not avai lable Notes: left thumb pt reported ? Knee Surgery Information not avai lable Notes: right pt reported ? Orthopedic Surgery Information not avai lable Notes: left elbow pt reported ? Shoulder Surgery Information not avai lable Notes: left per patient in ? Cervical Spine Surgery Information not a vailable Notes: C3-C4 per patient. in 09/14/2017 MRI, Shoulder, W/o Contrast [facility] (Internal) [address] [place] [address] (Work Place) 09/22/2017 MAMMO, Screening, Digital, Bilateral [facility] (Internal) [address] [place] [address] (Work Place) 09/23/2017 XR, Hip, Unilateral, 2 or 3 View [facility] (Internal) [address] [place] [address] (Work Place) 04/28/2018 US, Abdomen, Limited [facility] (Internal) [address] [place] [address] (Work Place) 08/22/2018 Electrocardiogram [facility] [address] [place] [phone] (Work Place) 09/04/2018 MAMMO, Screening, Tomosynthesis, [facility] (Internal) Bilateral [address] [place], [place] [phone] (Work Place) 05/03/2019 US, Abdomen, Limited [facility] (Internal) [address] [place], [place] [phone] (Work Place) 10/04/2019 MAMMO, Screening, Tomosynthesis, [facility] (Internal) Bilateral [address] [place], [place] [phone] (Work Place) 12/26/2019 XR, Shoulder, 2 or More View [facility]iology (Internal) [address], [place] [phone] (Work Place) 05/29/2020 US, Abdomen, Limited [facility] (Internal) [address] [place], [place] [phone] (Work Place) Results Lab Results Date Name Specimen Result Interpretation Description Value Range Status Address ? 06/06/2020 CBC W/ Auto BLD ? Wbc 6.8 10*3/uL 5.0-10.0 F inal North Diff 10*3/uL [facility] L ab (Internal) : [address] ? ? BLD ? Rbc 4.77 10*6/uL 4.10-5.30 Final N orth 10*6/uL [facility] L ab (Internal) : [address] ? ? BLD ? Hgb 13.9 g/dL 12.0-16.0 Final Nort h g/dL [facility] L ab (Internal) : [address] ? ? BLD ? Hct 42.3 % 37.0-47.0 Final [place] % [facility] L ab (Internal) : [address] ? ? BLD ? Mcv 88.7 fL 80.0-96.0 Final [facility] L ab (Internal) : [address] ? ? BLD ? Mch 29.1 pg 26.0-32.0 Final [facility] L ab (Internal) : [address] [place] ? ? BLD ? Mchc 32.9 g/dL 31.0-35.0 Final Nort h g/dL [facility] L ab (Internal) : [address] [place] ? ? BLD ? Rdw 11.5 % 11.5-14.5 Final [facility] L ab (Internal) : [address] [place] ? ? BLD ? Plt 198 10*3/uL 130-450 Final Nort h 10*3/uL [facility] L ab (Internal) : [address] [place] ? ? BLD ? Anc 4.48 10*3/uL ? Final Nort [facility] L ab (Internal) : [address] [place] ? ? BLD ? Nlr 2.93 0.00-3.20 Final [facility] L ab (Internal) : [address] [place] ? ? BLD ? Neutro 66.3 % 40.0-75.0 Final [facility] L ab (Internal) : [address] [place] ? ? BLD ? Lymph 22.6 % 20.0-50.0 Final [facility] L ab (Internal) : [address] [place] ? ? BLD ? [place] 9.3 % 2.0-10.0 Final [facility] L ab (Internal) : [address] [place] ? ? BLD ? Eos 1.2 % 1.0-6.0 % Final [facility] L ab (Internal) : [address] [place] ? ? BLD ? Baso 0.3 % 0.0-1.0 % Final [facility] L ab (Internal) : [address] [place] ? ? BLD ? Ig 0.3 % 0.0-0.9 % Final [facility] L ab (Internal) : [address] 06/06/2020 Hepatic S ? Tbil 0.4 mg/dL 0.2-1.3 Final N orth Function mg/dL [facility], Serum Hosp ital Lab (Internal) : [address] ? ? S ? Dbil 0.1 mg/dL 0.0-0.3 Final North mg/dL [facility] (Internal[facility] : [address] ? ? S ? Alp 82 U/L 38-126 Final North U/L [facility] L ab (Internal) : [address] ? ? S ? Alt (Sgpt) 19 U/L 9-52 U/L Final [facility] (Internal) : [address] ? ? S ? Ast (Sgot) 27 U/L 14-36 U/L Final No rth [facility] (Internal) : [address] ? ? S ? Ggt 26 U/L 12-43 U/L Final [facility] L ab (Internal) : [address] ? ? S ? Tp 6.9 g/dL 6.3-8.2 Final North g/dL [facility] L ab (Internal) : [address] ? ? S ? Alb 4.4 g/dL 3.5-5.0 Final North g/dL [facility] (Internal) : [address] 05/03/2019 Lipid Panel, S High Chol 237 mg/dL 50-200 Malaika l North Serum mg/dL [facility] (Internal) : [address] ? ? S - Trig 70 mg/dL 10-150 Final North mg/dL [facility] L ab (Internal) : [address] ? ? S High Hdl 64 mg/dL 40-60 Final North mg/dL [facility] (Internal) : [address] ? ? S High Ldl 159 mg/dL 0-130 Final North mg/dL [facility] (Internal) : [address] 05/03/2019 Hepatic S - Tbil 0.4 mg/dL 0.2-1.3 Final N orth Function mg/dL [facility] Panel, Serum Hosp ital Lab (Internal) : [address] ? ? S - Dbil 0.0 mg/dL 0.0-0.3 Final North mg/dL [facility] (Internal) : [address] ? ? S - Alp 78 U/L 38-126 Final North U/L [facility] L ab (Internal) : [address] ? ? S - Alt (Sgpt) 27 U/L 9-52 U/L Final [facility] (Internal) : [address] ? ? S - Ast (Sgot) 27 U/L 14-36 U/L Final No [facility]th [facility] (Internal) : [address] ? ? S - Ggt 23 U/L 12-43 U/L Final [facility] L [facility] (Internal) : [address] ? ? S - Tp 7.0 g/dL 6.3-8.2 Final North g/dL [facility] L ab (Internal) : [address] ? ? S - Alb 4.1 g/dL 3.5-5.0 Final North g/dL [facility] L [facility] (Internal) : [address] 05/03/2019 BMP, Serum or S - g/r 86 mg/dL 74-106 Malaika l North Plasma mg/dL [facility] (Internal) : [address] ? ? S High Bun 18 mg/dL 7-17 Final North mg/dL [facility] L ab (Internal) : [address] ? ? S - Crea 1.00 mg/dL 0.52-1.04 Final Nor th mg/dL [facility] (Internal) : [address] ? ? S - Ca 9.3 mg/dL 8.4-10.2 Final North mg/dL [facility] L ab (Internal) : [address] ? ? S - Na 141 mmol/L 137-145 Final North mmol/L [facility] L ab (Internal) : [address] ? ? S - K 4.3 mmol/L 3.5-5.1 Final North mmol/L [facility] L ab (Internal) : [address] ? ? S High Cl 109 mmol/L 98-107 Final North mmol/L [facility] L ab (Internal) : [address] ? ? S - Tco2 23.0 mmol/L 22.0-30.0 Final No rth mmol/L [facility] (Internal) : [address] 01/04/2019 Pathology TISS - Report results ? Final N orth Study below [facility] (Internal) : [address] 09/20/2018 Lipid Panel, S High Chol 208 mg/dL 50-200 Malaika l North Serum mg/dL [facility] (Internal) : [address] ? ? S - Trig 88 mg/dL 10-150 Final North mg/dL [facility] L [facility] (Internal) : [address] ? ? S High Hdl 66 mg/dL 40-60 Final North mg/dL [facility] L [facility] (Internal) : [address] ? ? S - Ldl 124 mg/dL 0-130 Final [place] mg/dL [facility] L ab (Internal) : [address] 05/05/2018 CBC W/ Auto BLD - Wbc 5.8 10*3/uL 5.0-10.0 F inal North Diff 10*3/uL [facility] (Internal) : [address] ? ? BLD - Rbc 4.81 10*6/uL 4.10-5.30 Final N orth 10*6/uL [facility] L [facility] (Internal) : [address] ? ? BLD - Hgb 13.9 g/dL 12.0-16.0 Final Nort h g/dL [facility] L [facility] (Internal) : [address] ? ? BLD - Hct 40.7 % 37.0-47.0 Final [place] % [facility] L [facility] (Internal) : [address] ? ? BLD - Mcv 84.6 fL 80.0-96.0 Final [place] fL [facility] L [facility] (Internal) : [address] ? ? BLD - Mch 28.9 pg 26.0-32.0 Final [place] pg [facility] L ab (Internal) : [address] ? ? BLD - Mchc 34.2 g/dL 31.0-35.0 Final Nort h g/dL [facility] L ab (Internal) : [address] ? ? BLD - Rdw 11.6 % 11.5-14.5 Final [facility] L ab (Internal) : [address] ? ? BLD - Plt 187 10*3/uL 130-450 Final Nort h 10*3/uL [facility] (Internal[facility] : [address] ? ? BLD - Anc 3.30 10*3/uL ? Final Nort h [facility] L ab (Internal) : [address] ? ? BLD - Neutro 57.0 % 40.0-75.0 Final [place] % [facility] L [facility] (Internal) : [address] ? ? BLD - Lymph 32.9 % 20.0-50.0 Final [place] % [facility] L ab (Internal) : [address] ? ? BLD - [place] 8.0 % 2.0-10.0 Final [facility] L ab (Internal) : [address] ? ? BLD - Eos 1.4 % 1.0-6.0 % Final [facility] L ab (Internal) : [address] ? ? BLD - Baso 0.5 % 0.0-1.0 % Final [facility] L ab (Internal) : [address] ? ? BLD - Ig 0.2 % 0.0-0.9 % Final [facility] L ab (Internal) : [address] 05/05/2018 CMP, Serum or S - g/r 87 mg/dL 74-106 Malaika l North Plasma mg/dL [facility] L ab (Internal) : [address] ? ? S High Bun 36 mg/dL 7-17 Final North mg/dL [facility] L ab (Internal) : [address] ? ? S - Crea 0.90 mg/dL 0.52-1.04 Final Nor th mg/dL [facility] L ab (Internal) : [address] ? ? S - Ca 9.2 mg/dL 8.4-10.2 Final North mg/dL [facility] L ab (Internal) : [address] ? ? S - Na 142 mmol/L 137-145 Final North mmol/L [facility] (Internal) : [address] ? ? S - K 3.8 mmol/L 3.5-5.1 Final North mmol/L [facility] (Internal) : [address] ? ? S - Cl 106 mmol/L 98-107 Final North mmol/L [facility] (Internal) : [address] ? ? S - Tco2 22.0 mmol/L 22.0-30.0 Final No rth mmol/L [facility] (Internal) : [address] ? ? S - Tp 7.1 g/dL 6.3-8.2 Final North g/dL [facility] (Internal) : [address] ? ? S - Alb 4.6 g/dL 3.5-5.0 Final North g/dL [facility] (Internal) : [address] ? ? S - Tbil 0.7 mg/dL 0.2-1.3 Final North mg/dL [facility] (Internal) : [address] ? ? S - Alp 57 U/L 38-126 Final North U/L [facility] (Internal) : [address] ? ? S - Alt (Sgpt) 18 U/L 9-52 U/L Final Nor th [facility] (Internal) : [address] ? ? S - Ast (Sgot) 23 U/L 14-36 U/L Final No rth [facility] (Internal) : [address] 05/05/2018 Lipid Panel, S High Chol 211 mg/dL 50-200 Malaika l North Serum mg/dL [facility] (Internal) : [address] ? ? S - Trig 74 mg/dL 10-150 Final North mg/dL [facility] (Internal) : [address] ? ? S - Hdl 58 mg/dL 40-60 Final North mg/dL [facility] (Internal) : [address] ? ? S High Ldl 138 mg/dL 0-130 Final North mg/dL [facility] L ab (Internal) : [address] 05/05/2018 TSH, Serum or S - Tsh 2.35 0.47-4.68 Fin al North Plasma u[IU]/mL u[IU]/mL [facility] L ab (Internal) : [address] 07/14/2017 Venipuncture BLD ? Venpn* ? ? Final [facility] L ab (Internal) : [address] 07/14/2017 BMP, Serum or S ? g/r 91 mg/dL 74-106 Malaika l North Plasma mg/dL [facility] L ab (Internal) : [address] ? ? S High Bun 26 mg/dL 7-17 Final North mg/dL [facility] L ab (Internal) : [address] ? ? S High Crea 1.10 mg/dL 0.52-1.04 Final Nor th mg/dL [facility] L ab (Internal) : [address] ? ? S ? Ca 9.6 mg/dL 8.4-10.2 Final North mg/dL [facility] L ab (Internal) : [address] ? ? S ? Na 140 mmol/L 137-145 Final North mmol/L [facility] L ab (Internal) : [address] ? ? S ? K 3.8 mmol/L 3.5-5.1 Final North mmol/L [facility] L ab (Internal) : [address] ? ? S ? Cl 105 mmol/L 98-107 Final North mmol/L [facility] L ab (Internal) : [address] ? ? S ? Tco2 25.0 mmol/L 22.0-30.0 Final No rth mmol/L [facility] L ab (Internal) : [address] 06/09/2017 TSH, Serum or S ? Tsh 1.30 0.47-4.68 Fin al North Plasma u[IU]/mL u[IU]/mL [facility] L ab (Internal) : [address] 05/18/2017 Venipuncture BLD ? Venpn* ? ? Final [facility] (Internal) : [address] 05/18/2017 Prothrombin BLD ? Pt 10.3 S 9.1-11.7 Final North Time S [facility] L ab (Internal) : [address] ? ? BLD ? Inr 1.0 ? Final [facility] L ab (Internal) : [address] 05/18/2017 CMP, Serum or S ? g/r 87 mg/dL 74-106 Malaika l North Plasma mg/dL [facility] L ab (Internal) : [address] ? ? S High Bun 19 mg/dL 7-17 Final North mg/dL [facility] (Internal) : [address] ? ? S ? Crea 1.00 mg/dL 0.52-1.04 Final Nor th mg/dL [facility] L ab (Internal) : [address] ? ? S ? Ca 9.2 mg/dL 8.4-10.2 Final North mg/dL [facility] L ab (Internal) : [address] ? ? S ? Na 141 mmol/L 137-145 Final North mmol/L [facility] L [facility] (Internal) : [address] ? ? S ? K 4.1 mmol/L 3.5-5.1 Final North mmol/L [facility] L ab (Internal) : [address] ? ? S ? Cl 105 mmol/L 98-107 Final [place] mmol/L [facility] L ab (Internal) : [address] ? ? S ? Tco2 27.0 mmol/L 22.0-30.0 Final No rth mmol/L [facility] (Internal) : [address] ? ? S ? Tp 7.0 g/dL 6.3-8.2 Final [place] g/dL [facility] (Internal) : [address] t ? ? S ? Alb 4.3 g/dL 3.5-5.0 Final [place] g/dL [facility] ([facility]) : [address] t ? ? S ? Tbil 0.3 mg/dL 0.2-1.3 Final [place] mg/dL [facility] (Internal) : [address] t ? ? S ? Alp 70 U/L 38-126 Final [place] U/L [facility] (Internal) : [address] t ? ? S ? Alt (Sgpt) 38 U/L 9-52 U/L Final Nor th [facility] (Internal) : [address] t ? ? S ? Ast (Sgot) 30 U/L 14-36 U/L Final [facility] : [address] t 05/18/2017 CBC W/ Auto BLD ? Wbc 5.2 10*3/uL 5.0-10.0 F inal [place] Diff 10*3/uL [facility] : [address] t ? ? BLD ? Rbc 4.73 10*6/uL 4.10-5.30 Final N orth 10*6/uL [facility] : [address] t ? ? BLD ? Hgb 13.8 g/dL 12.0-16.0 Final Nort h g/dL [facility] ([facility]) : [address] t ? ? BLD ? Hct 41.3 % 37.0-47.0 Final [facility] (Internal) : [address] t ? ? BLD ? Mcv 87.3 fL 80.0-96.0 Final [facility] (Internal) : [address] t ? ? BLD ? Mch 29.2 pg 26.0-32.0 Final [facility] (Internal) : [address] t ? ? BLD ? Mchc 33.4 g/dL 31.0-35.0 Final Nort h g/dL [facility] (Internal) : [address] t ? ? BLD ? Rdw 11.7 % 11.5-14.5 Final [facility] (Internal) : [address] t ? ? BLD ? Plt 163 10*3/uL 130-450 Final Nort h 10*3/uL [facility] (Internal) : [address] t ? ? BLD ? Anc 2.97 10*3/uL ? Final Nort h [facility] (Internal) : [address] t ? ? BLD ? Neutro 57.4 % 40.0-75.0 Final [facility] (Internal) : [address] t ? ? BLD ? Lymph 32.1 % 20.0-50.0 Final [facility] (Internal) : [address] t ? ? BLD ? [place] 8.5 % 2.0-10.0 Final [facility] (Internal) : [address] t ? ? BLD ? Eos 1.4 % 1.0-6.0 % Final [facility] (Internal) : [address] t ? ? BLD ? Baso 0.4 % 0.0-1.0 % Final [facility] (Internal) : [address] t ? ? BLD ? Ig 0.2 % 0.0-0.9 % Final [facility] (Internal) : [address] t 02/28/2017 CMP, Serum or S ? g/r 94 mg/dL 74-106 Malaika l [place] Plasma mg/dL [facility] ([facility]) : [address] t ? ? S High Bun 18 mg/dL 7-17 Final [place] mg/dL [facility] ([facility]) : [address] t ? ? S ? Crea 1.00 mg/dL 0.52-1.04 Final Nor th mg/dL [facility] ([facility]) : [address] t ? ? S ? Ca 9.4 mg/dL 8.4-10.2 Final [place] mg/dL [facility] ([facility]) : [address] t ? ? S ? Na 140 mmol/L 137-145 Final [place] mmol/L [facility] (Internal) : [address] t ? ? S ? K 4.2 mmol/L 3.5-5.1 Final [place] mmol/L [facility] : [address] t ? ? S ? Cl 105 mmol/L 98-107 Final [place] mmol/L [facility] : [address] t ? ? S ? Tco2 23.0 mmol/L 22.0-30.0 Final No rth mmol/L [facility] : [address] t ? ? S ? Tp 7.2 g/dL 6.3-8.2 Final [place] g/dL [facility] : [address] t ? ? S ? Alb 4.7 g/dL 3.5-5.0 Final [place] g/dL [facility] : [address] ? ? S ? Tbil 0.6 mg/dL 0.2-1.3 Final [place] mg/dL [facility] : [address] t ? ? S ? Alp 73 U/L 38-126 Final [place] U/L [facility] : [address] t ? ? S ? Alt (Sgpt) 32 U/L 9-52 U/L Final Nor [facility] : [address] t ? ? S ? Ast (Sgot) 26 U/L 14-36 U/L Final [facility]th [facility] : [address] 12/24/2016 Lipid Panel, S High Chol 219 mg/dL 50-200 Malaika l [place] Serum mg/dL [facility] : [address] t ? ? S ? Trig 116 mg/dL 10-150 Final [place] mg/dL [facility] : [address] t ? ? S ? Hdl 52 mg/dL 40-60 Final [place] mg/dL [facility] : [address] t ? ? S High Ldl 144 mg/dL 0-130 Final [place] mg/dL [facility] : [address] 12/24/2016 CMP, Serum or S Low g/r 72 mg/dL 74-106 Malaika l [place] Plasma mg/dL [facility] : [address] t ? ? S High Bun 19 mg/dL 7-17 Final [place] mg/dL [facility] : [address] t ? ? S ? Crea 1.00 mg/dL 0.52-1.04 Final Nor th mg/dL [facility] : [address] t ? ? S ? Ca 9.2 mg/dL 8.4-10.2 Final [place] mg/dL [facility] : [address] t ? ? S ? Na 142 mmol/L 137-145 Final [place] mmol/L [facility] : [address] t ? ? S High K 5.6 mmol/L 3.5-5.1 Final [place] mmol/L [facility] : [address] t ? ? S ? Cl 107 mmol/L 98-107 Final [place] mmol/L [facility] : [address] t ? ? S ? Tco2 24.0 mmol/L 22.0-30.0 Final No rth mmol/L [facility] : [address] t ? ? S ? Tp 7.2 g/dL 6.3-8.2 Final [place] g/dL [facility] : [address] t ? ? S ? Alb 4.5 g/dL 3.5-5.0 Final [place] g/dL [facility] : [address] t ? ? S ? Tbil 0.7 mg/dL 0.2-1.3 Final [place] mg/dL [facility] : [address] t ? ? S ? Alp 73 U/L 38-126 Final [place] U/L [facility] : [address] t ? ? S ? Alt (Sgpt) 24 U/L 9-52 U/L Final Nor th [facility] ([facility] : [address] t ? ? S ? Ast (Sgot) 24 U/L 14-36 U/L Final No rth [facility] ab (Internal) : [address] t ? Venipuncture ? Location Left ? ? P _nc Primary Antecubital Care [place]: [address], [place] ? ? ? Needle 23g ? ? P_nc Prim kami Butterfly Care [place]: [address], [place] ? ? ? Number of 1 ? ? P_nc P rimary Attempts Care [place]: [address], [place] ? ? ? Successful Yes ? ? P_nc Primary Care [place]: [address], [place] ? ? ? Dressing Pressure ? ? P_nc Primary Band-aid Care Applied [place]: [address], [place] ? ? ? Initials TB ? ? P_nc Pr imary Care [place]: [address], [place] ? Electrocardio ? Rate & 65 ? ? P_ nc Primary gram Rhythm Care [place]: [address], [place] ? ? ? Qrs 86 ? ? P_nc Prima ry Care [place]: [address], [place] ? ? ? TN 176 ? ? P_nc Prima ry Interval Care [place]: [address], [place] ? ? ? QRS 86 ? ? P_nc Prima ry Duration Care [place]: [address], [place] ? ? ? QT 416 ? ? P_nc Prima ry Interval Care [place]: [address], [place] Past Encounters 12/26/2019 Pain of Right Shoulder Joint Jim Joseph MD: [address] [facility], [address], [place] [address], Ph. 03/28/2019 Malignant Melanoma of Skin of Upper Limb Bhargav Blair, DO[facility] [address] [facility] [place] [address], Ph. 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 Social History Tobacco Smoking Status Former Smoker Notes: Quit: 1 977 Started age 30 Vaccine List Vaccine Type Hep A-Hep B 01/30/2013 03/06/2013 08/07/2013 influenza, high dose seasonal 03/09/2016?0.5 mL influenza, injectable, quadrivalent 01/27/2020 influenza, seasonal, injectable 02/23/2003 02/06/2015?0.5 mL 01/06/2017?0.5 mL influenza, seasonal, injectable, preserv ative free 01/29/2010?0.5 mL 02/17/2011 02/17/2012?0.5 mL 04/03/2013?0.5 mL 02/07/2014?0.5 mL 01/16/2019?0.5 mL pneumococcal conjugate PCV 13 01/21/2017?0.5 mL pneumococcal polysaccharide PPV23 08/06/2011?0.5 mL Td (adult), adsorbed 04/25/1996 Tdap 07/10/2010 varicella zoster live 10/09/2014 Plan of Care Reminders Provider Appointments None ? ? recorded. Lab None ? ? recorded. Referral None ? ? recorded. Procedures None ? ? recorded. Surgeries None ? ? recorded. Imaging None ? ? recorded. Vitals 03/28/2019 02:00PM Nurse 20 Height Weight BMI Blood Pressure 156.21 cm 62.14 kg 25.5 kg/m2 142/80 mm[Hg] 03/23/2019 09:00AM Nurse 20 Height Weight BMI Blood Pressure 156.21 cm 62.6 kg 25.7 kg/m2 130/80 mm[Hg] 02/08/2019 09:20AM Follow Up 20 Height Weight BMI Blood Pressure 156.21 cm 62.6 kg 25.7 kg/m2 130/70 mm[Hg] 01/12/2019 10:20AM Nurse 20 Height Blood Pressure 156.21 cm 120/80 mm[Hg] 01/04/2019 03:40PM Follow Up 20 Height Weight BMI Blood Pressure 156.21 cm 61.23 kg 25.1 kg/m2 122/72 mm[Hg] 12/14/2018 09:00AM Acute 20 Height Weight BMI Blood Pressure 156.21 cm 62.14 kg 25.5 kg/m2 120/88 mm[Hg] 09/19/2018 09:00AM Follow Up 20 Height Weight BMI Blood Pressure 156.21 cm 63.05 kg 25.8 kg/m2 128/76 mm[Hg] 08/22/2018 09:00AM Acute 20 Height Weight BMI Blood Pressure 156.21 cm 63.96 kg 26.2 kg/m2 120/74 mm[Hg] 04/28/2018 02:20PM Follow Up 20 Height Weight BMI Blood Pressure 156.21 cm 67.59 kg 27.7 kg/m2 122/70 mm[Hg] 04/12/2018 04:00PM Follow Up 30 Height Weight BMI Blood Pressure 156.21 cm 68.49 kg 28.1 kg/m2 142/68 mm[Hg] 02/17/2018 11:30AM Office 30 Height Weight BMI Blood Pressure 156.21 cm 65.32 kg 26.8 kg/m2 123/92 mm[Hg] 01/05/2018 09:00AM Follow Up 15 Height Weight BMI 156.21 cm 66.5 kg 27.3 kg/m2 12/16/2017 10:30AM Office 15 Height Weight BMI Blood Pressure 156.21 cm 70.76 kg 29 kg/m2 106/60 mm[Hg] 12/08/2017 09:30AM Follow Up 15 Height Weight BMI Blood Pressure 156.21 cm 66.41 kg 27.2 kg/m2 138/68 mm[Hg] 12/06/2017 01:00PM Follow Up 20 Height 156.21 cm 09/23/2017 09:20AM Acute 20 Height Weight BMI Blood Pressure 156.21 cm 66.22 kg 27.1 kg/m2 152/90 mm[Hg] 09/14/2017 01:00PM Consult 30 Height Weight BMI Blood Pressure 156.21 cm 65.77 kg 27 kg/m2 142/70 mm[Hg] 07/19/2017 Weight Blood Pressure 66 kg 154/84 mm[Hg] 07/13/2017 Weight Blood Pressure 65.77 kg 150/84 mm[Hg] 07/06/2017 Weight Blood Pressure 65.77 kg 138/82 mm[Hg] 06/17/2017 Height Weight Blood Pressure 156.21 cm 65.77 kg 119/71 mm[Hg] 06/09/2017 Height Weight Blood Pressure 160.02 cm 66.63 kg 134/80 mm[Hg] 04/05/2017 Weight Blood Pressure 66.37 kg 158/84 mm[Hg] 02/28/2017 Weight Blood Pressure 66.27 kg 144/80 mm[Hg] 12/28/2016 Weight Blood Pressure 65.77 kg 140/70 mm[Hg] 07/09/2016 Height Weight Blood Pressure 160.02 cm 68.04 kg 154/86 mm[Hg] 06/15/2016 Height Weight Blood Pressure 160.02 cm 42.64 kg 150/96 mm[Hg] 03/09/2016 Height Weight Blood Pressure 160.02 cm 67.59 kg 135/80 mm[Hg] 02/10/2016 Height Weight Blood Pressure 160.02 cm 65.32 kg 120/74 mm[Hg] 01/13/2016 Weight Blood Pressure 64.86 kg 160/86 mm[Hg] 12/23/2015 Height Weight Blood Pressure 160.02 cm 64.86 kg 148/80 mm[Hg] 11/25/2015 Height Weight Blood Pressure 160.02 cm 65.77 kg 140/80 mm[Hg] 08/06/2015 Height Weight Blood Pressure 160.02 cm 67.27 kg 140/84 mm[Hg] 07/22/2015 Height Weight Blood Pressure 160.02 cm 67.13 kg 150/82 mm[Hg] 07/07/2015 Height Weight Blood Pressure 160.02 cm 66.45 kg 120/56 mm[Hg] 06/24/2015 Height Weight Blood Pressure 160.02 cm 65.77 kg 138/74 mm[Hg] 06/18/2015 Height Weight Blood Pressure 160.02 cm 66.68 kg 124/74 mm[Hg] 2015 Height Weight Blood Pressure 160.02 cm 66.22 kg 146/82 mm[Hg] 02/06/2015 Height Weight Blood Pressure 160.02 cm 64.86 kg 154/86 mm[Hg] 12/26/2014 Height Weight Blood Pressure 160.02 cm 62.14 kg (1) 154/96 mm[Hg] (2) 150/88 mm[Hg] 12/09/2014 Weight Blood Pressure 61.69 kg 134/70 mm[Hg] 10/09/2014 Height Weight Blood Pressure 160.02 cm 61.92 kg 130/70 mm[Hg] 09/18/2014 Height Weight Blood Pressure 160.02 cm 60.92 kg 128/70 mm[Hg] 08/27/2014 Height Weight Blood Pressure 160.02 cm 59.87 kg 160/82 mm[Hg] 07/29/2014 Height Weight Blood Pressure 160.02 cm 62.14 kg 118/70 mm[Hg] 06/07/2014 Blood Pressure 126/64 mm[Hg] 05/23/2014 Weight Blood Pressure 58.06 kg 128/64 mm[Hg] 04/30/2014 Weight Blood Pressure 57.61 kg 116/64 mm[Hg] 04/16/2014 Weight Blood Pressure 56.7 kg 100/68 mm[Hg] 03/27/2014 Weight Blood Pressure 58.97 kg 128/64 mm[Hg] 02/07/2014 Weight Blood Pressure 57.61 kg 118/68 mm[Hg] 09/27/2013 Weight Blood Pressure 57.15 kg 116/72 mm[Hg] 09/06/2013 Weight Blood Pressure 57.61 kg 108/70 mm[Hg] 08/22/2013 Weight Blood Pressure 58.06 kg 112/70 mm[Hg] 08/07/2013 Weight Blood Pressure 56.7 kg 148/90 mm[Hg] 07/18/2013 Weight Blood Pressure 58.06 kg 104/68 mm[Hg] 06/12/2013 Weight Blood Pressure 58.97 kg 124/72 mm[Hg] 05/21/2013 Weight Blood Pressure 59.87 kg 110/70 mm[Hg] 04/03/2013 Weight Blood Pressure 58.51 kg 128/82 mm[Hg] 02/23/2013 Weight 57.61 kg 02/09/2013 Weight 57.61 kg 01/25/2013 Weight Blood Pressure 57.61 kg (1) 140/82 mm[Hg] (2) 168/86 mm[Hg] 12/27/2012 Weight 55.34 kg 12/26/2012 Weight Blood Pressure 55.34 kg 102/60 mm[Hg] 10/18/2012 Blood Pressure 110/78 mm[Hg] 09/29/2012 Height Weight Blood Pressure 156.21 cm 64.32 kg 110/70 mm[Hg] 08/31/2012 Weight Blood Pressure 68.95 kg (1) 160/80 mm[Hg] (2) 148/82 mm[Hg] 08/16/2012 Weight Blood Pressure 69.4 kg 140/66 mm[Hg] 07/12/2012 Weight Blood Pressure 69.85 kg 160/90 mm[Hg] 07/05/2012 Weight Blood Pressure 68.04 kg 130/72 mm[Hg] 06/22/2012 Weight Blood Pressure 69.85 kg 122/64 mm[Hg] 03/22/2012 Weight Blood Pressure 68.49 kg 126/76 mm[Hg] 02/17/2012 Height Weight Blood Pressure 160.02 cm 68.95 kg 140/80 mm[Hg] 01/05/2012 Weight Blood Pressure 67.59 kg 138/66 mm[Hg] 01/04/2012 Height Weight Blood Pressure 160.02 cm 67.59 kg 138/86 mm[Hg] 11/30/2011 Weight 67.59 kg 11/09/2011 Weight Blood Pressure 67.59 kg 140/80 mm[Hg] 10/19/2011 Height Weight Blood Pressure 160.02 cm 68.49 kg 148/82 mm[Hg] 09/09/2011 Height Weight Blood Pressure 157.48 cm 70.31 kg 140/80 mm[Hg] 08/06/2011 Weight Blood Pressure 69.85 kg 138/82 mm[Hg] 06/22/2011 Height Weight Blood Pressure 157.48 cm 70.76 kg 126/76 mm[Hg] 05/21/2011 Height Weight Blood Pressure 157.48 cm 70.76 kg 126/74 mm[Hg] 05/14/2011 Height Weight Blood Pressure 157.48 cm 70.76 kg 130/80 mm[Hg] 05/12/2011 Height Weight Blood Pressure 157.48 cm 70.76 kg 130/84 mm[Hg] 04/01/2011 Height Weight Blood Pressure 157.48 cm 70.76 kg 130/70 mm[Hg] 03/19/2011 Weight Blood Pressure 72.12 kg 156/102 mm[Hg] 02/17/2011 Height Weight Blood Pressure 160.02 cm 70.72 kg (1) 176/100 mm[Hg] (2) 168/90 mm[Hg] 11/13/2010 Weight Blood Pressure 66.86 kg 128/76 mm[Hg] 11/10/2010 Height Weight Blood Pressure 160.02 cm 67.59 kg 150/95 mm[Hg] 11/02/2010 Weight Blood Pressure 68.49 kg 160/90 mm[Hg] 08/25/2010 Height Weight Blood Pressure 160.02 cm 65.77 kg 150/92 mm[Hg] 08/11/2010 Weight Blood Pressure 67 kg 146/80 mm[Hg] 07/10/2010 Height Weight Blood Pressure 158.75 cm 67.95 kg 118/70 mm[Hg] 05/06/2010 Weight Blood Pressure 67.45 kg (1) 116/76 mm[Hg] (2) 126/80 mm[Hg] 05/01/2010 Height Weight Blood Pressure 158.75 cm 66.81 kg (1) 160/98 mm[Hg] (2) 170/98 mm[Hg] 01/30/2010 Weight Blood Pressure 67.04 kg 140/78 mm[Hg] 07/11/2009 Weight Blood Pressure 67.59 kg 104/80 mm[Hg] 06/24/2009 Weight Blood Pressure 65.77 kg 128/74 mm[Hg] 05/13/2009 Weight Blood Pressure 59.87 kg 142/90 mm[Hg] 04/14/2009 Weight Blood Pressure 60.78 kg 122/80 mm[Hg] 03/31/2009 Weight Blood Pressure 61.69 kg 140/72 mm[Hg] 03/17/2009 Weight Blood Pressure 61.69 kg 122/80 mm[Hg] 03/04/2009 Weight Blood Pressure 60.78 kg (1) 152/88 mm[Hg] (2) 150/90 mm[Hg] (3) 150/80 mm[Hg] 01/30/2009 Weight Blood Pressure 61.69 kg (1) 142/78 mm[Hg] (2) 138/80 mm[Hg] 12/18/2008 Weight Blood Pressure 61.69 kg (1) 140/68 mm[Hg] (2) 136/76 mm[Hg] 11/26/2008 Weight Blood Pressure 61.23 kg (1) 80/60 mm[Hg] (2) 88/60 mm[Hg] (3) 84/60 mm[Hg] 08/26/2008 Weight Blood Pressure 62.6 kg 118/72 mm[Hg] 06/18/2008 Weight Blood Pressure 62.14 kg (1) 142/88 mm[Hg] (2) 148/92 mm[Hg] (3) 138/78 mm[Hg] 05/13/2008 Height Weight Blood Pressure 157.48 cm 61.23 kg 120/68 mm[Hg] 04/24/2008 Weight Blood Pressure 62.82 kg 122/80 mm[Hg] 03/13/2008 Weight Blood Pressure 63.05 kg 112/70 mm[Hg] 10/04/2007 Height Weight Blood Pressure 158.5 cm 60.78 kg 122/64 mm[Hg] 11/14/2006 Weight Blood Pressure 59.42 kg (1) 138/66 mm[Hg] (2) 140/66 mm[Hg] 10/17/2006 Weight Blood Pressure 58.97 kg 150/90 mm[Hg] 10/03/2006 Weight Blood Pressure 59.87 kg (1) 186/90 mm[Hg] (2) 168/40 mm[Hg] 11/08/2005 Height Weight Blood Pressure 158.12 cm 61.23 kg 110/60 mm[Hg] 06/21/2005 Weight Blood Pressure 64.86 kg 132/76 mm[Hg] 10/28/2004 Height Weight Blood Pressure 152.4 cm 65.32 kg 118/76 mm[Hg] 10/06/2004 Blood Pressure 160/90 mm[Hg] 06/15/2004 Weight Blood Pressure 65.77 kg 136/72 mm[Hg] 04/20/2004 Height Weight Blood Pressure 160.02 cm 67.13 kg 136/78 mm[Hg] 04/08/2004 Weight Blood Pressure 64.86 kg 152/80 mm[Hg]
[2020-09-09] MEDS: Inhaler, Assist Device 1 EACH MC (14:38)
[2020-09-09] MEDS: Albuterol HFA 18 GM 200 PUFF INH IH (14:38)
--- NOTE | 2020-09-10 17:27 | W.PFT ---
Date of service: 09/09/20 Time of Service: 09:00 Pulmonary Function Test Result Interpretation Spirometry: No evidence of obstructive airways disease, no bronchodilator response Lung Volumes: No evidence of restriction Diffusion Capacity: Mildly reduced even when corrected to alveolar volume Airway Pressure: Normal Impression Isolated mild diffusion defect. Clinical correlation recommended. This constellation of findings can be seen in pulmonary hypertension. Clinical Correlation therefore is recommended.
== END 2020-09-09 11:08 | disposition home or self-care (01) ==
LOC: RT 11:08
PROVIDERS: PCP Neuromusculoskeletal Medicine & OMM; Visit Provider Neuromusculoskeletal Medicine & OMM
DX: I27.21 Secondary pulmonary arterial hypertension (principal); R07.9 Chest pain, unspecified; R05 Cough
CPT/HCPCS: 94060; 94726; 94729

== ENCOUNTER 2021-08-18 01:00 | Outpatient (CLI) | payer MEDICARE, OTHER, SELFPAY ==
--- NOTE | 2021-08-18 08:45 | DI.NM_ITS ---
APPROVED REPORT Exam: Pharmacologic Patient Location: Out-Patient Room/Bed: Stress Nurse: Samara Villalba RN Ordering Provider:ALEXANDRE BLAIR, Contact Number: [phone] BMI: 25.60 Baseline Rhythm: Sinus Bradycardia Indications: ATYPICAL CHEST PAIN Medical History Medical History: PAH, HTN, HLD, GERD, Sleep apnea, Chest pain, Hyperkalemia Cardiac Medications: Metoprolol succinate, Spironolactone, Allergies: Sulfa, Venlafaxine Cardiac Risk Factors: HTN, Hyperlipidemia, FHX of CAD Previous Cardiac Procedures: None Pretest Chest Pain Characteristics: No chest pain Exercise History: Sedentary Physical Disabilities: None Lung Sounds: Clear to auscultation Heart Sounds: Regular Stress Test Details Test: Exercise stress converted to pharmacologic stress due to failure to obtain a diagnostic stress test. Reason for pharmacologic stress test: changed from exercise stress test due to inability to reach t arget heart rate. Nuclear Acquisition: Rest Tc-99m/Stress Tc-99m 1 day Rest Isotope: Tc-99m Sestamibi. Dose: 10.0 Date: 08/18/2021 Injection Time: 0855 Stress Isotope: Tc-99m Sestamibi. Dose: 31.6 Date: 08/18/2021 Injection Time: 1030 HR Resting HR Supine: 51 bpm Max Heart Rate (APMHR): 145.839122 bpm Resting HR Standin bpm Target HR (85% APMHR): 123.689901 bpm Max HR Achieved: 102 bpm % of APMHR: 70.34 Recovery HR: 69 bpm Comment: Metoprolol succinate held for 24 hrs prior to stress test. BP Resting BP Supine: 124/64 mmHg Resting BP Standin/58 mmHg Max BP: 144/54 mmHg Recovery BP: 130/58 mmHg ECG Resting ECG: Sinus Bradycardia Ectopy: None Stress ECG: Sinus Rhythm ST Change: No significant ST segment changes noted, , No significant ST segment changes noted, Horizo ntal ST depression Arrhythmia: None Recovery ECG: Sinus Rhythm Recovery ST Change: No significant ST segment changes noted Recovery Arrhythmia: None Clinical Reason for Termination: Dizziness, Fatigue Stress Symptoms: Chest pain, Dyspnea, Headache, Leg Fatigue, General Fatigue, Dizziness, Nausea Exercise duration: 06 min12 sec Exercise capacity: 7.2 METs Rate Pressure Product: 55302 Stress ECG Conclusion 1. Resting electrocardiogram showed poor R wave progression 2. Patient underwent stress testing using a combination of low-level exercise and pharmacologic stres s with regadenoson 3. Peak heart rate achieved was 70% of predicted for age 4. The electrocardiographic portion of the test was nondiagnostic due to inadequate heart rate 5. See MPI report Stress Test Summary STAGE Time (mins) Speed (mph) Grade (%) HR BP SYMPTOMS METS Supine 51 124/64 Standing 57 112/58 1 3 1.7 10 78 120/56 4.6 2 6 2.5 12 90 144/54 7 1 min post Lexiscan injection 81 118/60 Pt reports SOB, nausea, LEE, dizziness, 5/10 chest pedro n 3 min post Lexiscan injection 74 132/60 LEE, nausea, CP still present 6 min post Lexiscan injection 69 130/58 Symptoms resolved Stopped treadmill portion of stress test due to patient's inability to keep up with treadmill speed i n 3rd stage. Patient reports dizziness upon cessation of exercise. MPI Conclusion Normal myocardial perfusion without evidence of ischemia or prior infarction EF 75%, normal wall motion Radiologist Interpretation Radiologist Interpretation by: Alexandre Martin MD Interpretation Date/Time: 08/18/2021 16:56:26
[2021-08-18] MEDS: Regadenoson 0.4 MG/5 ML SYR IVP (10:40)
== END 2021-08-18 01:20 ==
PROVIDERS: PCP Neuromusculoskeletal Medicine & OMM; Visit Provider Neuromusculoskeletal Medicine & OMM
DX: R07.89 Other chest pain (principal)
CPT/HCPCS: 78452; 93306; 93017; J2785

== ENCOUNTER 2021-10-23 09:30 | Outpatient (CLI) | payer MEDICARE, OTHER, SELFPAY ==
--- NOTE | 2021-10-23 09:30 | RT.EKG_ITS ---
APPROVED REPORT Exam: Resting ECG Reason for Exam: NPW baseline needed Patient Location: O HR:71 bpm ECG Measurements Heart Rate 71 AXIS MA 173 P 79 QRSd 92 QRS 53 QT 391 T 48 QTc 425 Conclusion Sinus rhythm...normal P axis, V-rate 50- 99 Normal Electrocardiogram
== END 2021-10-23 09:31 | disposition home or self-care (01) ==
LOC: DI.CARD 09:31
PROVIDERS: PCP Neuromusculoskeletal Medicine & OMM; Visit Provider Internal Medicine Cardiovascular Disease
DX: I10 Essential (primary) hypertension (principal); I27.21 Secondary pulmonary arterial hypertension; R07.9 Chest pain, unspecified
CPT/HCPCS: 93010

== ENCOUNTER 2021-10-23 09:53 | Outpatient (CLI) | payer MEDICARE, OTHER, SELFPAY ==
--- NOTE | 2021-11-17 14:46 | CER_ITS ---
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 Predominant rhythm was sinus with an average heart rate of 76 bpm. Minimum was 55, maximum 144 There were very rare ventricular ectopic beats There were rare atrial premature beats. Several self-limited atrial runs occurred There was no atrial fibrillation, no high-grade AV block, no pauses greater than 3 seconds Patient symptoms were reported ;the majority of these corresponded to sinus tachycardia
== END 2021-10-23 09:54 | disposition home or self-care (01) ==
LOC: RT 09:54
PROVIDERS: PCP Neuromusculoskeletal Medicine & OMM; Visit Provider Internal Medicine Cardiovascular Disease
DX: R07.9 Chest pain, unspecified (principal); I10 Essential (primary) hypertension; I27.21 Secondary pulmonary arterial hypertension; R42 Dizziness and giddiness
CPT/HCPCS: 93005; 93246; 99203; 99214

== ENCOUNTER → 2021-11-24 14:03 | Outpatient (BNVA) | payer MEDICARE, OTHER, SELFPAY | PROVIDERS: PCP Neuromusculoskeletal Medicine & OMM; Referring Provider Neuromusculoskeletal Medicine & OMM; Visit Provider Internal Medicine Cardiovascular Disease | DX: R07.9 Chest pain, unspecified (principal); I10 Essential (primary) hypertension | CPT/HCPCS: 99212 ==

== ENCOUNTER → 2022-01-15 00:19 | Outpatient (CLI) | payer MEDICARE, OTHER, SELFPAY ==
--- NOTE | 2022-01-15 08:30 | DI.MRI_ITS ---
Exam(s) MR BRAIN WO EXAM: MR BRAIN WO CLINICAL HISTORY: TREMOR, R25.1 TECHNIQUE: Multiplanar multisequence MRI of the brain was performed. COMPARISON: MR MR BRAIN W/WO CONTRAST from 10/05/2012 FINDINGS: VENTRICLES AND EXTRA AXIAL SPACES: Normal in size and morphology for the patient's age. MIDLINE SHIFT: None. CEREBRAL PARENCHYMA: Mild atrophy. Minimal white matter changes of small vessel disease. No focus o f restricted diffusion to suggest acute infarct. No space-occupying lesion identified. HEMORRHAGE: None. BRAINSTEM/CEREBELLUM: Normal. CALVARIUM: Normal. VISUALIZED PARANASAL SINUSES/MASTOIDS:Clear. [place]: Normal flow void. PITUITARY GLAND: Partially empty sella. OTHER FINDINGS: None. IMPRESSION: Unremarkable MRI of the brain. DATA REPOSITORY:
== END ==
PROVIDERS: PCP Neuromusculoskeletal Medicine & OMM; Visit Provider Psychiatry & Neurology Neurology
DX: R25.1 Tremor, unspecified (principal)
CPT/HCPCS: 70551